=== PATIENT | male | born 1980 | race Caucasian/White ===

== ENCOUNTER 2018-11-08 05:51 | Emergency (ER) | payer OTHER ==
[~2018-11-08] VITALS: Ht 175.3 cm; Wt 72.4 kg
--- NOTE | 2018-11-08 05:54 | NUR ---
PT. IN BATHROOM WHEN CALLED FOR TRIAGE.
--- NOTE | 2018-11-08 06:03 | NUR ---
PT PLACED IN GOWN AND AWAITING ERP AND ORDERS.
--- NOTE | 2018-11-08 06:43 | NUR ---
IV STARTED LAB TO BEDSIDE. PT AWARE OF NEED FOR STOOL AND URINE SAMPLES.
--- NOTE | 2018-11-08 06:53 | NUR ---
REPORT FROM KARLI RUIZ
[2018-11-08 06:54] LABS: MEAN CORPUSCULAR HGB CONC 34.3 g/dL (33.2-36.2); MEAN CORPUSCULAR VOLUME 90.3 fL (81-97); MEAN PLATELET VOLUME 8.7 fL (7.4-10.4); PLATELET COUNT 245 x10^3/uL (130-400); RED CELL DISTRIBUTION WIDTH 12.4 % (9.4-14.8)
[2018-11-08] MEDS ORDERED: ONDANSETRON 2MG/ML, 2ML ONE (06:56)
[2018-11-08] MEDS ORDERED: HYDROmorphone 2 MG/ML, 1ML ONE (06:56)
[2018-11-08] MEDS ORDERED: SODIUM CHLORIDE FLUSH 10ML SYR IVF ONE (07:00)
[2018-11-08 07:05] LABS: ALANINE AMINOTRANSFERASE 27 U/L (12-78); ALBUMIN 4.6 g/dL (3.4-5.0); ANION GAP 10 mmol/L (5-15); CALCIUM 9.6 mg/dL (8.5-10.1); CHLORIDE 99 mmol/L (98-107); CREATININE 1.13 mg/dL (0.7-1.3)
[2018-11-08 07:08] LABS: ALKALINE PHOSPHATASE 90 U/L (45-117); BILIRUBIN,TOTAL 0.7 mg/dL (0.2-1.0); TOTAL PROTEIN 8.5 g/dL (6.4-8.2)
[2018-11-08] MEDS: ONDANSETRON 2MG/ML, 2ML IVPush ONE (07:13)
[2018-11-08] MEDS: HYDROmorphone 2 MG/ML, 1ML IVPush PRN (07:14)
[2018-11-08 07:20] LABS: BASOPHILS # (AUTO) 0.01 x10^3/uL (0-0.1); BASOPHILS % (AUTO) 0 % (0-1); EOSINOPHILS # (AUTO) 0.02 x10^3/uL (0-0.4); EOSINOPHILS % (AUTO) 0 % (1-7); LYMPHOCYTES # (AUTO) 1.38 x10^3/uL (1-3.4); LYMPHOCYTES % (AUTO) 9 % (22-44); MD SCAN; MONOCYTES # (AUTO) 1.49 x10^3/uL (0.2-0.8); MONOCYTES % (AUTO) 10 % (2-9); NEUTROPHILS # (AUTO) 12.75 x10^3/uL (1.8-6.8); NEUTROPHILS % (AUTO) 82 % (42-75)
[2018-11-08 08:38] VITALS: BP 111/90
[2018-11-08] MEDS ORDERED: PROMETHAZINE 25 MG/ML, 1ML ONE (08:42)
[2018-11-08] MEDS: PROMETHAZINE 25 MG/ML, 1ML IM ONE (08:55)
[2018-11-08] MEDS ORDERED: OMNIPAQUE 350 MG/ML, 100ML BOTTLE ONE (09:09)
[2018-11-08 09:33] LABS: MICROSCOPIC AUTO
[2018-11-08 09:34] LABS: CULTURE INDICATED? NO
== END 2018-11-08 10:59 | disposition home or self-care (01) ==
LOC: ED 06:34
DX: K52.9 Noninfective gastroenteritis and colitis, unspecified (principal); D72.829 Elevated white blood cell count, unspecified; K62.3 Rectal prolapse; K21.9 Gastro-esophageal reflux disease without esophagitis; F12.10 Cannabis abuse, uncomplicated; Z90.89 Acquired absence of other organs
CPT/HCPCS: 36415; 74022; 74177; 80053; 81001; 83690; 85025; 96372; 96374; 96375; 99284; J1170; J2405; J2550; Q9967